=== PATIENT | male | born 1985 | race Two or more races ===

== ENCOUNTER 2018-02-04 17:53 | Emergency (ER) | payer OTHER ==
[~2018-02-04] VITALS: Ht 165.1 cm; Wt 65.8 kg
[2018-02-04 18:24] VITALS: BP 134/78
== END 2018-02-04 18:30 | disposition home or self-care (01) ==
LOC: FSED 17:53
DX: R10.32 Left lower quadrant pain (principal)
CPT/HCPCS: 99283